=== PATIENT | male | born 1990 | race Caucasian/White ===

== ENCOUNTER 2019-10-30 13:02 | Emergency (ER) | payer BC, SELFPAY ==
[2019-10-30 13:35] VITALS: BP 144/97; PULSE 94; RESP 14; TEMP 36.4; O2SAT 97; BMI 38.0
--- NOTE | 2019-10-30 14:02 | HMH.EDUTC ---
[facility] [place] Disposition Clinical Impression: Sinusitis Qualifiers: Sinusitis location: unspecified location Chronicity: unspecified Qualified Code(s): J32.9 - Chronic sinusitis, unspecified Disposition: Home, Self-Care Condition on Discharge: Good Instructions: Sinusitis, Sinus Headache, DI for Sinusitis, Azithromycin Additional Instructions: *Monitor Temp, Over the counter Motrin or Tylenol as directed/as needed Tylenol every 4 hours and Motrin every 6 hours (as long as your family doctor has told you that you can take it) for fever or pain. and straight to ER if unable to lower temp less than 101.0 after medication given *Warm salt water gargles may help to soothe the throat *Throat Lozenges *Warm fluids like tea with honey may help to soothe the throat *Sleep elevated *Humidifier/Vaporizer *Flonase 2 sprays in each nostril daily but be aware that it may take 2-3 days before you notice improvement Follow up IMMEDIATELY for new or worsening symptoms or no Noticeable improvement over the next 48-72 hours. 911 for difficulty breathing or swallowing Prescriptions: Azithromycin [Z-Javi 250mg Tab] 250 mg PO DIRECTED #6 tab Transmission Status: Received by [id number] Referrals: PCP,No [Primary Care Provider] - As needed Forms: Work/School Release Time of Disposition: 14:04 Medical Decision Making - Vimal Inquiry Pt receiving controlled substance: No Vimal was queried for this patient: No Vital Signs: 10/30/19 13:35 10/30/19 14:16 Temperature 97.6 F 97.6 F Temperature Source Oral Pulse Rate 94 H Pulse Rate [Right Brachial] 94 H Respiratory Rate 14 14 Blood Pressure 144/97 H Blood Pressure [Right Arm] 144/97 H Blood Pressure Mean [Right Arm] 112 Blood Pressure Source [Right Arm] Automatic Cuff Blood Pressure Position [Right Arm] Sitting 02 Sat by Pulse Oximetry 97 Oxygen Delivery Method Room Air [facility] [place] HPI - General Stated complaint: stuffy nose Time Seen by Provider: 10/30/19 13:45 Mode of Arrival: Ambulatory Source of Information: Patient Limitations: No Limitations Description of Symptoms (Recalled from Triage Doc. by RN): PATIENT C/O NASAL CONGESTION AND SORE THROAT HEENT Symptoms (Recalled from RN notes): Yes Resp Symptoms (Recalled from RN notes): No Skin Symptoms (Recalled from RN notes): No MS Symptoms (Recalled from RN notes): No Functional Status (Recalled from RN notes): WNL - History of Present Illness Provider Complaint: Patient states that he feels like he may have a sinus infection States that he has been having sinus pain and pressure for over a week and feels like he is having drainage in the back of his throat State that he was suppose to work today and they wanted him to come get checked - Related Data Previous Rx's Medication Instructions Recorded Azithromycin [Z-Javi 250mg Tab] 250 mg PO DIRECTED #6 tab 10/30/19 Allergies Allergy/AdvReac Type Severity Reaction Status Date / Time diazepam [From Valium] Allergy Verified 03/18/19 11:49 diphenhydramine Allergy Verified 03/18/19 11:49 [From Benadryl] - Worker's Comp Is this a Worker's Comp case?: No [facility] History - Hepatitis A Screen Drug use history?: No High risk sexual behaviors?: No History of sexually transmitted infection?: No Currently employed?: No Childcare worker?: No Do you have indoor plumbing?: Yes Do you have electricity?: Yes Attestation statement:: This patient has been screened for Hepatitis A risk factors. I have reviewed the patient's past medical history: Yes Laterality Cases: Bilateral: Tonsillectomy - Social History Alcohol Intake: never Occupational Status: other ROS Obtained: Yes All systems reviewed & no additional complaints, Yes Systems reviewed as appropriate & no additional complaints - Constitutional Constitutional: Reports system reviewed and no additional complaints, except as docu, Denies body ache, Denies chills, Denies fever(s) - EN
[2019-10-30 14:16] VITALS: BP 144/97; PULSE 94; RESP 14; TEMP 36.4; O2SAT 97
== END 2019-10-30 14:20 | disposition home or self-care (01) ==
PROVIDERS: Emergency Provider Nurse Practitioner
DX: J32.9 Chronic sinusitis, unspecified (principal)
CPT/HCPCS: 99201

== ENCOUNTER 2019-11-01 13:02 | Emergency (ER) | payer BC, MEDICAID, SELFPAY ==
[2019-11-01 13:15] VITALS: BP 142/100; PULSE 102; RESP 19; TEMP 37; O2SAT 96; BMI 39.1
--- NOTE | 2019-11-01 13:30 | HMH.EDUTC ---
[facility] [place] Disposition Clinical Impression: Sinusitis Qualifiers: Sinusitis location: unspecified location Chronicity: acute Recurrence: non-recurrent Qualified Code(s): J01.90 - Acute sinusitis, unspecified Disposition: Home, Self-Care Condition on Discharge: Good Instructions: Sinusitis, DI for Sinusitis Additional Instructions: Drink plenty of fluids. Take tylenol for pain or fever. Take the medications as directed. Follow up with your regular doctor. GO TO THE ER FOR ANY WORSENING SYMPTOMS Don't start the oral steroids until tomorrow, since you had the shot here today. FOLLOW THE DIRECTIONS ON THE COVID-19 HAND OUT THAT WE GAVE YOU REGARDING SELF-ISOLATION UNTIL YOU KNOW YOUR COVID-19 RESULTS Prescriptions: methylPREDNISolone [Medrol] 4 mg PO DIRECTED 6 Days #21 tab.[email or web address] Transmission Status: Received by [id number] Cefdinir [Omnicef 300mg Capsule] 300 mg PO BID #20 cap Transmission Status: Received by [id number] Referrals: PCP,No [Primary Care Provider] - Forms: Work/School Release Time of Disposition: 13:40 Medical Decision Making - Medical Records Medical records reviewed: No: I reviewed the patient's medical records. - Vimal Inquiry Pt receiving controlled substance: No Vital Signs: 11/01/19 13:15 11/01/19 13:52 Temperature 98.6 F 98.6 F Temperature Source Oral Pulse Rate 102 H Pulse Rate [Right Brachial] 102 H Respiratory Rate 19 19 Blood Pressure 142/100 H Blood Pressure [Right Arm] 142/100 H Blood Pressure Mean [Right Arm] 114 Blood Pressure Source [Right Arm] Automatic Cuff Blood Pressure Position [Right Arm] Sitting 02 Sat by Pulse Oximetry 96 Oxygen Delivery Method Room Air - Lab Data Lab results reviewed: Yes: I reviewed the patient's lab results. Lab Results 11/01/19 13:35: COVID-19 PCR Not detected Orders (Tests/Meds): ED MEDICATIONS Discontinued Medications Generic Name Dose Route Start Last Admin Trade Name Freq PRN Reason Stop Dose Admin Ceftriaxone Sodium 1 gm 11/01/19 13:30 11/01/19 13:51 Rocephin 1gm Vial IM 11/01/19 13:31 1 gm ONCE ONE Administration Protocol Lidocaine HCl 0 ml 11/01/19 13:30 11/01/19 13:51 Lidocaine 1% 10ml Mdv IM 11/01/19 13:31 2.1 ml ONCE ONE Administration Methylprednisolone Sodium Succinate 125 mg 11/01/19 13:30 11/01/19 13:51 Solu-Medrol 125mg/2ml Vial IM 11/01/19 13:31 125 mg ONCE ONE Administration [facility] [place] HPI - General Stated complaint: Sinus problems, upper respiratory problem Time Seen by Provider: 11/01/19 13:20 Mode of Arrival: Ambulatory Source of Information: Patient Limitations: No Limitations Description of Symptoms (Recalled from Triage Doc. by RN): PATIENT C/O COUGH, HEADACHE, SINUS CONGESTION, AND DECREASED TASTE. REQUESTING COVID TEST FOR WORK HEENT Symptoms (Recalled from RN notes): Yes Resp Symptoms (Recalled from RN notes): Yes Skin Symptoms (Recalled from RN notes): No MS Symptoms (Recalled from RN notes): No Functional Status (Recalled from RN notes): WNL - History of Present Illness Provider Complaint: He c/o 5 days of worsening sinus congestion. He also needs a covid test before he can go back to work. He has completed a z-pack with no improvement in his symptoms. He states that usually it takes steroids and an antibiotic shot to get him better. - Related Data Previous Rx's Medication Instructions Recorded Cefdinir [Omnicef 300mg Capsule] 300 mg PO BID #20 cap 11/01/19 methylPREDNISolone [Medrol] 4 mg PO DIRECTED 6 Days #21 11/01/19 tab.ds.pk Allergies Allergy/AdvReac Type Severity Reaction Status Date / Time diazepam [From Valium] Allergy Verified 03/18/19 11:49 diphenhydramine Allergy Verified 03/18/19 11:49 [From Benadryl] - Worker's Comp Is this a Worker's Comp case?: No [facility] History - Hepatitis A Screen Drug use history?: No High risk sexual behaviors?: No Hi
[2019-11-01 13:52] VITALS: BP 142/100; PULSE 102; RESP 19; TEMP 37; O2SAT 96
[2019-11-02 17:04] LABS: Covid-19 Nasal PCR Sendout UK Not Detected
== END 2019-11-01 13:58 | disposition home or self-care (01) ==
PROVIDERS: Emergency Provider Nurse Practitioner Family
DX: J01.90 Acute sinusitis, unspecified (principal); Z03.818 Encounter for observation for suspected exposure to other biological agents ruled out; Z90.09 Acquired absence of other part of head and neck
CPT/HCPCS: 96372; 99202; U0003

== ENCOUNTER → 2020-01-15 18:52 | Outpatient (CLI) | payer BC, MEDICAID, SELFPAY ==
[2020-01-15 19:54] LABS: Basophils % 0.5 % (0.1-2.0); Eosinophils # 0.1 K/mm3 (0.0-0.4); Eosinophils % 0.9 % (0.1-12.0); Hematocrit 52.7 % (42.0-52.0); Hemoglobin 17.4 g/dL (14.1-18.0); Lymphocytes # 2.5 K/mm3 (0.7-4.5); Lymphocytes % 28.9 % (10-50); Mean Corpuscular Hemoglobin 29.2 pg (27.0-31.2); Mean Corpuscular Volume 88.4 fl (80-94); Monocytes # 0.6 K/mm3 (0.1-1.0); Monocytes % 7.3 % (1.7-9.3); Neutrophils # 5.4 K/mm3 (1.8-7.8); Neutrophils % 62.4 % (37.0-80.0); Platelet Count 246 K/mm3 (142-424); Red Blood Count 5.96 M/mm3 (4.60-6.20); Red Cell Distribution Width 13.5 % (11.5-17.5); White Blood Count 8.6 K/mm3 (4.8-10.8)
[2020-01-15 20:05] LABS: Alanine Aminotransferase 62 U/L (12-78); Albumin Level 4.6 g/dl (3.5-5.0); Albumin/Globulin Ratio 1.6 (1.1-1.8); Alkaline Phosphatase 97 U/L (38-126); Anion Gap 12.1 mEq/L (5-15); Aspartate Amino Transferase 42 U/L (17-59); Bilirubin,Total 0.6 mg/dl (0.2-1.3); Blood Urea Nitrogen 13 mg/dl (9-20); Calcium 9.7 mg/dl (8.4-10.2); Carbon Dioxide 27 mmol/L (22.0-30.0); Chloride 105 mmol/L (98-107); Chol/HDL Ratio 1.9 (1-3.5); Cholesterol 95 mg/dl (140-200); Estimated Glomerular Filt Rate 114 ml/min (>60); GFR (African American) 137 ML/MIN (>60); Globulin 2.9 g/dL (1.3-3.2); Glucose 95 mg/dl (74-100); HDL Cholesterol 49 mg/dl (40-60); Potassium 4.1 mmoL/L (3.5-5.1); Sodium 140 mmol/L (136-145); Total Protein,Serum 7.5 g/dl (6.3-8.2); Triglycerides 77 mg/dl (30-150); VLDL Cholesterol 15 mg/dL (0-40)
[2020-01-15 20:17] LABS: Direct LDL Cholesterol 34.38 mg/dL (100-129)
[2020-01-15 20:20] LABS: 25-OH Vitamin D, Total 18.9 ng/mL (30-100)
[2020-01-15 20:36] LABS: Thyroid Stimulating Hormone 1.45 uIU/mL (0.465-4.68)
[2020-01-15 21:06] LABS: Hemoglobin A1C 5.7 % (4.0-6.0)
== END ==
PROVIDERS: Visit Provider Nurse Practitioner Family
DX: Z00.00 Encounter for general adult medical examination without abnormal findings (principal); R63.1 Polydipsia; E55.9 Vitamin D deficiency, unspecified; Z79.899 Other long term (current) drug therapy; I10 Essential (primary) hypertension; Z83.3 Family history of diabetes mellitus
CPT/HCPCS: 80053; 80061; 82306; 83036; 84436; 84443; 85025

== ENCOUNTER → 2020-06-07 12:28 | Outpatient (CLI) | payer BC, OTHER, SELFPAY ==
--- NOTE | 2020-06-07 12:42 | XR_ITS ---
PROCEDURE: XR FOOT WT BEARING RT 3V CLINICAL INDICATION: foot pain COMPARISON: No exams were available for comparison FINDINGS: No fracture or dislocation. No lytic or blastic change. There is normal mineralization. The joint spaces are well-preserved. No significant degenerative/arthritic changes. No erosive changes evident. Other findings:None. IMPRESSION: No acute findings. Dictated by: Liban Escalante MD 06/07/2020 14:18 Liban Escalante MD in [place] 06/07/2020 14:18
--- NOTE | 2020-06-07 12:42 | XR_ITS ---
PROCEDURE: XR FOOT WT BEARING LT 3V CLINICAL INDICATION: toe pain COMPARISON: CR XR FOOT WT BEARING RT 3V from 06/07/2020 FINDINGS: No fracture or dislocation. No lytic or blastic change. There is normal mineralization. The joint spaces are well-preserved. No significant degenerative/arthritic changes. No erosive changes evident. Other findings:None. IMPRESSION: No acute findings. Dictated by: Liban Escalante MD 06/07/2020 14:24 Liban Escalante MD in [place] 06/07/2020 14:24
[2020-06-07 12:58] LABS: Basophils # 0.1 K/mm3 (0-0.2); Basophils % 1.1 % (0.1-2.0); Eosinophils # 0.1 K/mm3 (0.0-0.4); Eosinophils % 1.3 % (0.1-12.0); Hematocrit 51.3 % (42.0-52.0); Hemoglobin 17.3 g/dL (14.1-18.0); Lymphocytes # 2.4 K/mm3 (0.7-4.5); Lymphocytes % 27.3 % (10-50); Mean Corpuscular HGB Conc 33.6 g/dL (31.8-35.4); Mean Corpuscular Hemoglobin 28.4 pg (27.0-31.2); Mean Corpuscular Volume 84.5 fl (80-94); Mean Platelet Volume 8.4 fl (7.4-10.4); Monocytes # 0.6 K/mm3 (0.1-1.0); Monocytes % 6.7 % (1.7-9.3); Neutrophils # 5.6 K/mm3 (1.8-7.8); Neutrophils % 63.7 % (37.0-80.0); Platelet Count 262 K/mm3 (142-424); Red Blood Count 6.08 M/mm3 (4.60-6.20); Red Cell Distribution Width 13.4 % (11.5-17.5); White Blood Count 8.8 K/mm3 (4.8-10.8)
[2020-06-07 13:14] LABS: Chloride 104 mmol/L (98-107); Potassium 4.2 mmoL/L (3.5-5.1); Sodium 140 mmol/L (136-145)
[2020-06-07 13:17] LABS: Alanine Aminotransferase 51 U/L (12-78); Albumin Level 5.1 g/dl (3.5-5.0); Albumin/Globulin Ratio 1.5 (1.1-1.8); Alkaline Phosphatase 121 U/L (38-126); Anion Gap 13.2 mEq/L (5-15); Aspartate Amino Transferase 39 U/L (17-59); Bilirubin,Total 0.5 mg/dl (0.2-1.3); Blood Urea Nitrogen 12 mg/dl (9-20); Carbon Dioxide 27 mmol/L (22.0-30.0); Estimated Glomerular Filt Rate 132 ml/min (>60); GFR (African American) 160 ML/MIN (>60); Globulin 3.4 g/dL (1.3-3.2); Total Protein,Serum 8.5 g/dl (6.3-8.2)
[2020-06-07 13:18] LABS: Calcium 10.3 mg/dl (8.4-10.2); Glucose 96 mg/dl (74-100)
[2020-06-07 13:23] LABS: C-Reactive Protein 8.3 mg/L (0-4)
[2020-06-07 13:54] LABS: Erythrocyte Sedimentation Rate 23 mm/hr (0-15)
== END ==
PROVIDERS: Visit Provider Nurse Practitioner
DX: M79.672 Pain in left foot (principal); L03.032 Cellulitis of left toe; M79.671 Pain in right foot
CPT/HCPCS: 36415; 73630; 80053; 85025; 85651; 86140

== ENCOUNTER → 2020-06-16 14:13 | Outpatient (CLI) | payer BC, OTHER, SELFPAY ==
--- NOTE | 2020-06-16 14:14 | CA_ITS ---
APPROVED REPORT EXAM: Comprehensive 2D, Doppler, and color-flow Echocardiogram Opener: MELISA Crump, RVS Ht: 5 ft 7 in Wt: 246lbs BSA: 2.21 BP: 148/87 mmHg Indications: SOA, per pr single lung due to pneumothorax without reinflation in childhood.GERD, CP Echo Enhancing Agent Comments: Poor acoustics throughout exam with large body habitus 2D Dimensions IVSd 0.84 cm LVEF (Visual) 64.40 % PWd 1.00 cm LA Volume 59.60 mL LVDd 4.54 cm LA Volume Index [id number] mL/m2 (M/F) 16-34 LVDs 2.95 cm LVOT 2.02 cm (M/F) 1.5-2.5 M-Mode Dimensions LA Diam 3.77 cm (1.9-4.0) Ao Diam 3.20 cm (2.0-3.7) EPSs 0.72 cm TAPSE 2.60 (<1.7) LV Diastology E Decel Time 200.00 (160-240 msec) E/A Ratio 1.68 MED E' 11.10 (< 7 cm/sec) MED A' 8.90 cm/s E'/MED E' Ratio 7.00 (>14) LAT E' 13.40 (<10 cm/sec) LAT A' 11.80 cm/s E/LAT E' Ratio 5.80 (>14) Aortic Valve LVOT Max 97.00 (70-110 cm/s) LVOT VTI 20.35 cm AoV Peak Chaim. 129.00 (50-130 cm/s) AO Peak GR. 6.70 mmHg AO Mean GR. 3.40 (<5 mmHg) AO VTI 25.23 (18-25 cm) HÉCTOR (VTI) 2.58 (2.5-4.5 cm2) Mitral Valve MV E Max Chaim. 78.00 (40-130 cm/s) MV A Velocity 46.00 (40-130 cm/s) E/A Ratio 1.68 MV Decel. Time 200.00 (160-240 ms) MV PHT 59.00 ms Pulmonary Valve PV Peak Velocity 93.00 (50-150 cm/s) Left Ventricle Left atrium is normal size, left ventricle is normal size, preserved left ventricular systolic function, visually estimated ejection fraction 55% with no regional wall motion abnormality, diastolic parameters are within normal range. Right Ventricle Right atrium and right ventricle are normal size and contractility. Aortic Valve Aortic valve is grossly normal, there is no aortic stenosis or aortic insufficiency. Mitral Valve Mitral valve grossly normal, there is no mitral regurgitation. Tricuspid Valve Tricuspid grossly normal, there is trace tricuspid regurgitation, tricuspid regurgitation jet velocity is inadequate for calculation of the right ventricular systolic pressure. Pulmonic Valve Pulmonic valve is poorly visualized. Great Vessels Aortic root is normal size. Pericardium No significant pericardial effusion noted. Conclusion 1. Normal left ventricular size, preserved left ventricular systolic function, visually estimated ejection fraction 55% with no regional wall motion abnormality, diastolic parameters are within normal range. 2. Trace mitral and tricuspid regurgitation. 3. No significant pericardial effusion noted. Electronically signed by : Nabor Ramirez, 06/17/2020 13:18:03
--- NOTE | 2020-06-16 14:17 | US_ITS ---
APPROVED REPORT Exam Type: Lower Extremity Segmental Pressures Package Delivery Room Service Runner: Linette Gee RVT Indications Non-healing Ulcer: PT HAS REDNESS/SORE LT GREAT TOE X SEVERAL MTHS Risk Factors Hyperlipidemia Pressures/Indices Right Indices Left Indices Brachial 134.00 mmHg Brachial 142.00 mmHg Low Thigh 148.00 mmHg 1.04 Low Thigh 155.00 mmHg 1.09 Calf 158.00 mmHg 1.11 Calf 172.00 mmHg 1.21 Ankle(PT) 182.00 mmHg 1.28 Ankle(PT) 179.00 mmHg 1.26 Ankle(DP) 162.00 mmHg 1.14 Ankle(DP) 177.00 mmHg 1.25 Digit 165.00 mmHg 1.16 Digit 168.00 mmHg 1.18 Findings RT JESUS:1.28 LT JESUS:1.26 RT TBI:1.16 LT TBI:1.18 NORMAL PULSES BILATERAL NORMAL WAVEFROMS BILATERAL Conclusion RT JESUS:1.28 LT JESUS:1.26 RT TBI:1.16 LT TBI:1.18 NORMAL PULSES BILATERAL NORMAL WAVEFROMS BILATERAL No evidence significant arterial disease throughout the right and left lower extremities as evidenced by normal resting PVR waveforms and normal resting indices. Electronically signed by : Liban Escalante MD 06/16/2020 17:37:38
== END ==
PROVIDERS: PCP Nurse Practitioner Family; Visit Provider Internal Medicine Cardiovascular Disease
DX: I10 Essential (primary) hypertension (principal); R09.89 Other specified symptoms and signs involving the circulatory and respiratory systems
CPT/HCPCS: 93306; 93923

== ENCOUNTER → 2020-07-15 19:22 | Outpatient (CLI) | payer BC, OTHER, SELFPAY | PROVIDERS: Visit Provider Nurse Practitioner Family | DX: Z20.822 Contact with and (suspected) exposure to COVID-19 (principal) | CPT/HCPCS: U0003 ==

== ENCOUNTER → 2020-07-23 14:03 | Outpatient (CLI) | payer BC, OTHER, SELFPAY | PROVIDERS: PCP Nurse Practitioner Family; Visit Provider Internal Medicine Cardiovascular Disease | DX: G47.33 Obstructive sleep apnea (adult) (pediatric) (principal); R06.83 Snoring; R40.0 Somnolence; I10 Essential (primary) hypertension | CPT/HCPCS: G0399 ==

== ENCOUNTER → 2020-08-06 10:35 | Outpatient (CLI) | payer BC, OTHER, SELFPAY ==
[2020-08-06 11:26] LABS: Basophils # 0.1 K/mm3 (0-0.2); Eosinophils # 0.1 K/mm3 (0.0-0.4); Eosinophils % 1.1 % (0.1-12.0); Hematocrit 45.9 % (42.0-52.0); Hemoglobin 15.7 g/dL (14.1-18.0); Lymphocytes # 2.1 K/mm3 (0.7-4.5); Lymphocytes % 26.4 % (10-50); Mean Corpuscular HGB Conc 34.2 g/dL (31.8-35.4); Mean Corpuscular Hemoglobin 28.5 pg (27.0-31.2); Mean Corpuscular Volume 83.3 fl (80-94); Mean Platelet Volume 8.8 fl (7.4-10.4); Monocytes # 0.5 K/mm3 (0.1-1.0); Monocytes % 5.7 % (1.7-9.3); Neutrophils # 5.3 K/mm3 (1.8-7.8); Neutrophils % 65.7 % (37.0-80.0); Platelet Count 290 K/mm3 (142-424); Red Blood Count 5.51 M/mm3 (4.60-6.20); Red Cell Distribution Width 13.6 % (11.5-17.5); White Blood Count 8.1 K/mm3 (4.8-10.8)
[2020-08-06 11:45] LABS: Chloride 105 mmol/L (98-107); Sodium 143 mmol/L (136-145)
[2020-08-06 11:46] LABS: Potassium 4.5 mmoL/L (3.5-5.1)
[2020-08-06 11:48] LABS: Alanine Aminotransferase 53 U/L (12-78); Albumin Level 4.8 g/dl (3.5-5.0); Albumin/Globulin Ratio 1.5 (1.1-1.8); Alkaline Phosphatase 100 U/L (38-126); Anion Gap 17.5 mEq/L (5-15); Aspartate Amino Transferase 36 U/L (17-59); Bilirubin,Total 0.5 mg/dl (0.2-1.3); Blood Urea Nitrogen 15 mg/dl (9-20); Calcium 9.8 mg/dl (8.4-10.2); Carbon Dioxide 25 mmol/L (22.0-30.0); Estimated Glomerular Filt Rate 132 ml/min (>60); GFR (African American) 160 ML/MIN (>60); Globulin 3.2 g/dL (1.3-3.2); Glucose 118 mg/dl (74-100)
[2020-08-06 11:54] LABS: C-Reactive Protein 5.1 mg/L (0-4)
[2020-08-06 12:09] LABS: Erythrocyte Sedimentation Rate 8 mm/hr (0-15)
== END ==
PROVIDERS: Visit Provider Nurse Practitioner
DX: L03.032 Cellulitis of left toe (principal)
CPT/HCPCS: 36415; 80053; 85025; 85651; 86140

== ENCOUNTER → 2020-11-11 16:18 | Outpatient (CLI) | payer OTHER, SELFPAY ==
[2020-11-11 19:12] LABS: Volume,Semen 1.5 ml (2.0-5.0)
[2020-11-11 19:13] LABS: Motility Quality Good Progression (Mod-Rapid); PH,Semen 8.5 (7.3-8.3); Semen Viscosity Stringy (Normal); Sperm Count 33 mil/mm3 (20-160); Sperm Motility 90 % (50-90); WBCs,Semen Trace
[2020-11-11 19:14] LABS: Sperm Morphology Normal (Normal)
[2020-11-11 20:54] LABS: 3Hr Motility Quality Moderate Progression (Mod-Rapid); 3Hr Sperm Motility 60 % (50-60)
== END ==
LOC: LAB 16:18
PROVIDERS: Visit Provider Urology
DX: R86.8 Other abnormal findings in specimens from male genital organs (principal)
CPT/HCPCS: 36415; 89320

== ENCOUNTER → 2021-02-21 20:19 | Outpatient (CLI) | payer OTHER, SELFPAY | PROVIDERS: Visit Provider Nurse Practitioner Family | DX: Z20.822 Contact with and (suspected) exposure to COVID-19 (principal); J02.9 Acute pharyngitis, unspecified | CPT/HCPCS: C9803; U0003; U0005 ==

== ENCOUNTER 2022-03-05 10:00 | Emergency (ER) | payer OTHER, SELFPAY ==
[2022-03-05 10:20] VITALS: BP 152/94; PULSE 117; RESP 20; TEMP 36.4; O2SAT 96; BMI 36.8
--- NOTE | 2022-03-05 10:31 | EXP.UTC ---
Discharge Plan Disposition Patient Disposition: Home, Self-Care Condition: Good Prescriptions Prescriptions: New amoxicillin [amoxicillin] 875 mg tablet 875 mg PO Q12H Qty: 20 0RF benzonatate [benzonatate] 100 mg capsule 100 mg PO TIDP PRN (Reason: Cough) Qty: 30 0RF methylprednisolone 4 mg Tablets,Dose Pack 4 mg PO DIRECTED Qty: 21 0RF Referrals Follow up/Referrals: Roland Carlisle MD [Primary Care Provider] - See instructions Activity Restrictions/Add. Instructions Additional Instructions/Restrictions: Drink plenty of fluids. Take tylenol or ibuprofen for pain or fever. Take the medications as directed. Follow up with your regular doctor. GO TO THE ER FOR ANY WORSENING SYMPTOMS Clinical Impressions Clinical Impression: Sinusitis, Otitis media Instructions Patient Instructions: Sinusitis, Middle Ear Infection, DI for Sinusitis Discharge ED Provider: Carlos Manuel James [facility] General Stated complaint: Congestion,Sore throat Mode of Arrival: Ambulatory Source of Information: Patient Limitations: No Limitations Time Seen by Provider: 03/05/22 10:31 Description of Symptoms (Recalled from Triage Doc. by RN): PATIENT C/O SORE THROAT, COUGH, CONGESTION AND HEADACHE SINCE YESTERDAY HEENT Symptoms (Recalled from RN notes): Yes Resp Symptoms (Recalled from RN notes): Yes Skin Symptoms (Recalled from RN notes): No MS Symptoms (Recalled from RN notes): No Functional Status (Recalled from RN notes): WNL History of Present Illness Provider Complaint: He states that for the past 3 days he has had ear pain, productive cough, fever, and chest congestion. Related Data Previous Rx's Medication Instructions Recorded amoxicillin 875 mg tablet 875 mg PO Q12H #20 tabs 03/05/22 benzonatate 100 mg capsule 100 mg PO TIDP PRN Cough #30 caps 03/05/22 methylprednisolone 4 mg tablets in 4 mg PO DIRECTED #21 tabs 03/05/22 a dose pack Allergies Allergy/AdvReac Type Severity Reaction Status Date / Time diazepam [From Valium] Allergy Verified 02/09/22 15:00 diphenhydramine Allergy Verified 02/09/22 15:00 [From Benadryl] Worker's Comp Is this a Worker's Comp case?: No [facility] Disclaimer: The information contained in this section may have been updated after the patient was seen, as this information can be updated by other users. Medical History No significant past medical history Social History Smoking Status: Never smoker alcohol intake: current substance use type: denies use current occupational status: employed Travel in the last 8 weeks: None household members: significant other housing: house number of children: 0 ROS Obtained: Yes All systems reviewed & no additional complaints except as documented Constitutional Constitutional: Reports chills and Reports fever(s) Eyes Eyes: Denies eye discharge ENT Ears, Nose, Mouth, and Throat: Reports as per HPI Cardiovascular Cardiovascular: Denies chest pain Respiratory Respiratory: Denies chest congestion and Reports cough Gastrointestinal Gastrointestingal: Reports nausea; Denies abdominal pain, constipation, cramping, diarrhea or vomiting Musculoskeletal Musculoskeletal: Denies arthralgias Integumentary/Breasts Skin/Breast: Denies rash Neurologic Neurologic: Denies paresthesias Physical Exam General General appearance: alert and in no apparent distress Head Head exam: atraumatic, normocephalic and normal inspection Eye Eye exam: Present normal appearance, PERRL and EOMI ENT ENT exam: Present mucous membranes moist and normal external ear exam Expanded ENT Exam TM/Canal exam: Bilateral TM: erythema and bulging Nose exam: Absent sinus tenderness Mouth exam: Present normal external inspection; Absent drooling Teeth exam: Present normal inspection Throat exam: Present tonsillar erythema, tonsillomegaly
[2022-03-05 10:50] VITALS: BP 152/94; PULSE 117; RESP 20; TEMP 36.4; O2SAT 96
[2022-03-05 10:50] LABS: UTC Strep Screen (Rapid) Negative (Negative)
== END 2022-03-05 11:07 | disposition home or self-care (01) ==
PROVIDERS: Emergency Provider Nurse Practitioner Family; PCP Family Medicine
DX: U07.1 COVID-19 (principal); H66.90 Otitis media, unspecified, unspecified ear; J32.9 Chronic sinusitis, unspecified; R09.89 Other specified symptoms and signs involving the circulatory and respiratory systems; J02.9 Acute pharyngitis, unspecified
CPT/HCPCS: 87880; 99212; 99213; C9803; G0463; U0003; U0005

== ENCOUNTER 2023-02-04 12:25 | Emergency (ER) | payer OTHER, SELFPAY ==
[2023-02-04 12:40] VITALS: BP 143/80; PULSE 76; RESP 18; TEMP 36.9; O2SAT 98; BMI 29.7
--- NOTE | 2023-02-04 12:56 | EXP.UTC ---
Discharge Plan Disposition Patient Disposition: Home, Self-Care Condition: Good Prescriptions Prescriptions: New azithromycin [Zithromax] 250 mg tablet 250 mg PO UD DOSE PK Qty: 6 0RF Rx Instructions: Take two (2) tablets today, then one (1) tablet days #2 thru #5 methylprednisolone 4 mg Tablets,Dose Pack 4 mg PO DIRECTED Qty: 21 0RF benzonatate [benzonatate] 100 mg capsule 100 mg PO TIDP PRN (Reason: Cough) Qty: 30 0RF guaifenesin [Mucinex] 600 mg tablet extended release 12hr 600 - 1,200 mg PO BIDP PRN (Reason: Congestion) Qty: 30 0RF Referrals Follow up/Referrals: Carlito Palafox DO [Primary Care Provider] - See instructions Activity Restrictions/Add. Instructions Additional Instructions/Restrictions: Drink plenty of fluids. Take tylenol or ibuprofen for pain or fever. Take the medications as directed. Follow up with your regular doctor. GO TO THE ER FOR ANY WORSENING SYMPTOMS Clinical Impressions Clinical Impression: Acute bronchitis, Sinusitis Instructions Patient Instructions: DI for Sinusitis, DI for Acute Bronchitis Discharge ED Provider: Carlos Manuel James [facility] General Stated complaint: cough,congestion Time Seen by Provider: 02/04/23 12:56 History of Present Illness Provider Complaint: He states that for the past 3 days he has had a worsening chest and sinus congestion. He denies any fever/chills/body aches. Related Data Previous Rx's Medication Instructions Recorded azithromycin 250 mg tablet 250 mg PO UD DOSE PK #6 tabs 02/04/23 (Zithromax) benzonatate 100 mg capsule 100 mg PO TIDP PRN Cough #30 caps 02/04/23 guaifenesin 600 mg tablet, 600 - 1,200 mg PO BIDP PRN 02/04/23 extended release 12 hr (Mucinex) Congestion #30 tabs methylprednisolone 4 mg tablets in 4 mg PO DIRECTED #21 tabs 02/04/23 a dose pack Allergies Allergy/AdvReac Type Severity Reaction Status Date / Time diazepam [From Valium] Allergy Verified 02/04/23 13:13 diphenhydramine Allergy Verified 02/04/23 13:13 [From Benadryl] [facility] Disclaimer: The information contained in this section may have been updated after the patient was seen, as this information can be updated by other users. Medical History Abrasion, left great toe, initial encounter Athlete's foot on left Burning sensation of feet Cellulitis of great toe of left foot Cellulitis of third toe, left Cold extremities Decreased pedal pulses No significant past medical history Other specified symptoms and signs involving the circulatory and respiratory systems Sinusitis Social History Smoking Status: Never smoker alcohol intake: current substance use type: denies use current occupational status: employed Travel in the last 8 weeks: None household members: significant other housing: house number of children: 0 ROS Obtained: Yes All systems reviewed & no additional complaints except as documented Constitutional Constitutional: Reports poor appetite Eyes Eyes: Reports system reviewed and no additional complaints, except as documented ENT Ears, Nose, Mouth, and Throat: Reports as per HPI Cardiovascular Cardiovascular: Reports system reviewed and no additional complaints, except as documented and Denies chest pain Respiratory Respiratory: Denies shortness of breath, Reports chest congestion, Reports cough, Denies stridor and Denies wheezing Gastrointestinal Gastrointestingal: Reports system reviewed and no additional complaints, except as documented; Denies abdominal pain, diarrhea or vomiting Musculoskeletal Musculoskeletal: Reports system reviewed and no additional complaints, except as documented and Denies arthralgias Integumentary/Breasts Skin/Breast: Reports system reviewed and no additional complaints, except as documented and Denies rash Neurologic Neurologic: De
[2023-02-04 13:22] VITALS: BP 143/80; PULSE 76; RESP 18; TEMP 36.9; O2SAT 98
== END 2023-02-04 13:22 | disposition home or self-care (01) ==
PROVIDERS: Emergency Provider Nurse Practitioner Family; PCP Internal Medicine
DX: J01.90 Acute sinusitis, unspecified (principal); J20.9 Acute bronchitis, unspecified; R09.81 Nasal congestion; R05.9 Cough, unspecified; R09.89 Other specified symptoms and signs involving the circulatory and respiratory systems
CPT/HCPCS: 99212; 99214; G0463